=== PATIENT | female | born 1990 | race Caucasian/White ===

== ENCOUNTER 2018-10-09 15:24 | Outpatient (REF) | payer MEDICAID, SELFPAY ==
--- NOTE | 2018-10-09 14:30 | PAPFT_PTH ---
PATIENT: Janette Arvizu LOC: [facility] U#:[id number] AGE/SX: 27/F ROOM: RE10/09/[address]: Silvina Roger NP : 1990 BED: DIS: 10/09/2018 SPEC #: [id number] RECD: 10/09/18 17:52 STATUS: AGUS REAngela #: [id number] DAMIEN: 10/09/18 14:[address]: Silvina Roger NP DEPT: [facility] Cytology RECD BY: Noemy Macario ENTERED: 10/09/18 17:53 SP TYPE: PAPFT OTHR DR: Patrizia Torres Tissues: 1 - CX/ENDOCX FOR PAP SMEARS Procedures: PAP THIN PREP/UVM Screening Comments: [id number] (CHLAMYDIA/GC)
[2018-10-10 14:30] LABS: Chlamydia Result Negative; GC Result Negative; Specimen Description SEE COMMENTS
== END 2018-10-09 15:44 ==
LOC: LBN 15:24
PROVIDERS: PCP Family Medicine; Visit Provider Nurse Practitioner Women's Health
DX: Z11.3 Encounter for screening for infections with a predominantly sexual mode of transmission (principal); Z12.4 Encounter for screening for malignant neoplasm of cervix
CPT/HCPCS: 87491; 87591; 88142

== ENCOUNTER 2019-02-23 14:18 | Outpatient (REF) | payer MEDICAID, SELFPAY ==
[2019-02-23 18:48] LABS: TSH (W/Ref FT4) 1.33 uIU/mL (0.358-3.74)
== END 2019-02-23 14:38 ==
LOC: NCHCN 14:18
PROVIDERS: PCP Family Medicine; Visit Provider Family Medicine
DX: F41.8 Other specified anxiety disorders (principal); F90.0 Attention-deficit hyperactivity disorder, predominantly inattentive type; R07.89 Other chest pain; Z83.3 Family history of diabetes mellitus
CPT/HCPCS: 84443

== ENCOUNTER 2019-03-13 06:15 | Emergency (ER) | payer MEDICAID, SELFPAY ==
[2019-03-13 06:26] VITALS: BP 142/88; PULSE 93; RESP 16; TEMP 36.5; O2SAT 98
--- NOTE | 2019-03-13 06:39 | W.ED.GENAD ---
Discharge Plan Disposition Patient Disposition: HOME Condition: Good Discharge Details Chief Complaint: Sorethroat Clinical Impression: Post-nasal drip, Sore throat Primary Care Provider: Patrizia Torres ED Provider: Jamir Solis Sarver Meds and New Rx's Prescriptions: Continued Nexplanon 68 mg implant 1 implant SBD ONCE Qty: 1 RF: 0 sertraline [Zoloft] 100 MG tablet 100 mg PO DAILY Qty: 30 RF: 4 methylphenidate HCl [Ritalin] 10 MG tablet 10 mg PO DAILY RF: 0 Vyvanse 40 MG capsule 40 mg PO DAILY RF: 0 Discharge Instructions Additional Instructions: Rapid strep is negative. Suspect your sore throat is related to postnasal drip. Try an antihistamine like Zyrtec or Claritin at night. Salt water gargles. Follow-up with primary care next week if not better. Return to ED if high fever, difficulty breathing, inability to swallow. Referrals: Patrizia Torres MD [Primary Care Provider] - Medical Decision Making Patient is afebrile. Lungs are clear and saturations are normal. Oropharynx has had evidence of cobblestoning suggestive of postnasal drip. Rapid strep is negative. Patient asked to try antihistamine to see if it dries up her postnasal drip which should help with the sore throat. Salt water gargles and stay hydrated. Follow-up with primary care next week if not better. Return to ED if difficulty breathing, inability to swallow, high fever, other concerns. HPI General Mode of arrival: ambulatory. Date/Time Provider Initiated Documentation: 03/13/19 06:17. Limitations to Documentation: no limitations. Information obtained by: patient. HPI Narrative: Patient presents to ED with complaint of sore throat. Patient has had cold symptoms for about a week. Most of it seems better but she still has a sore throat. She has a lot of postnasal drip. She has a little bit of a cough. She had no fever. Her sore throat is bothering her the most. It is worse in the morning when she wakes up AND it gets better during the day. She has no difficulty breathing. She thought it was all viral but since the throat is not getting better she decided to come in to be checked. Related Data Home Medications Medication Instructions Recorded Confirmed sertraline [Zoloft] 100 mg PO DAILY #30 tab-cap 12/21/16 03/13/19 Vyvanse 40 mg PO DAILY tab-cap 04/15/17 03/13/19 methylphenidate HCl [Ritalin] 10 mg PO DAILY tab 04/15/17 03/13/19 etonogestrel 68 mg subdermal 1 implant SBD ONCE #1 each 10/09/18 03/13/19 implant Previous Rx's Medication Instructions Recorded etonogestrel 68 mg subdermal 1 implant SBD ONCE #1 each 10/09/18 implant Allergies Allergy/AdvReac Type Severity Reaction Status Date / Time No Known Drug Allergies Allergy Unverified 03/13/19 06:31 Environmental Allergy Intermediate Runny Uncoded 03/13/19 06:31 nose, watery eyes, sneezing General Stated Complaint: Sorethroat GREG: 4 Review of Systems Review of Systems As documented in HPI otherwise negative as below. Const: no fever, chills, weakness Resp: slight cough; no SOB, pleuritic pain CV: no CP, diaphoresis, edema, syncope GI: no abdominal pain, nausea, vomiting, diarrhea Neuro: no headache, numbness, focal weakness, confusion [facility] Medical History Current smoker (Acute) Abnormal Pap smear of cervix (Acute) Anxiety with depression (Acute) Obesity (Chronic) Gestational hypertension (Resolved) ADD (attention deficit disorder) Depression Social History Smoking/Tobacco Use Status: Current every day Alcohol Intake: current Alcohol Intake frequency: holidays/special occasions only Drug use: Socially Substance use type: marijuana Number of Children: 2 What is your relationship status?: living with partner Panel score (0-1 are the most socially isolated patients): 1 Seatbelt use: always Do you feel safe in your relationship?: Yes Female Reproductive History Menstrual control method: implanted History History 3 Para 2 Hx # Term Pregnancies Multiple births Hx # Pregnancies Ectopic pregnancies AB induced Hx Number of Living Children AB spontaneous Exam Narrative Exam Narrative: Vitals: Mildly hypertensive. Afebrile. Normal saturations. Const: Obese female in NAD. HEENT: NC/AT. Normal facial exam. TMs normal. OP with cobblestoning posteriorly. No swelling or exudate. Eyes: Normal conjunctiva and sclera. Neck: Supple. Trachea midline. No adenopathy. Lungs: Normal respiratory effort. Lungs are clear. Cor: RRR without murmur/gallop. Neuro: A+O x 3. CN grossly in tact. Good strength and no focal deficit. Course Vital Signs Temperature 97.7 F 03/13/19 06:26 Pulse 93 H 03/13/19 06:26 Respiratory Rate 16 03/13/19 06:26 Blood Pressure 142/88 H 03/13/19 06:26 Pulse Oximetry 98 03/13/19 06:26 Temperature 97.7 F 03/13/19 06:26 Temperature Source Temporal Artery Scan 03/13/19 06:26 Pulse 93 H 03/13/19 06:26 Respiratory Rate 16 03/13/19 06:26 Respiratory Effort 03/13/19 06:26 Blood Pressure 142/88 H 03/13/19 06:26 Pulse Oximetry 98 03/13/19 06:26 Oxygen Delivery Method Room Air 03/13/19 06:26 Oxygen Flow Rate 0 03/13/19 06:26 Pain Level 10 03/13/19 06:26 Lab/Test Results Lab/Test Results: 03/13/19 06:36 Pharynx Streptococcus Screen (LILIANA) - Pending POC Strep Test-ANI(Rapid) Start: 03/13/19 06:33 Freq: .Rapid Strep Test Status: Active Protocol: Document 03/13/19 06:34 MJM (Rec: 03/13/19 06:34 MJM [id number]) Strep test-ANI(Rapid)-POC POC-Strep test-ANI (Rapid) Negative POC-Strep test-ANI (Rapid) Negative
--- NOTE | 2019-03-13 06:45 | ED.GENADUL_ITS ---
Discharge Plan Disposition Patient Disposition: HOME Condition: Good Discharge Details Chief Complaint: Sorethroat Clinical Impression: Post-nasal drip, Sore throat Primary Care Provider: Patrizia Torres ED Provider: Jamir Solis Statham Meds and New Rx's Prescriptions: Continued Nexplanon 68 mg implant 1 implant SBD ONCE Qty: 1 RF: 0 sertraline [Zoloft] 100 MG tablet 100 mg PO DAILY Qty: 30 RF: 4 methylphenidate HCl [Ritalin] 10 MG tablet 10 mg PO DAILY RF: 0 Vyvanse 40 MG capsule 40 mg PO DAILY RF: 0 Discharge Instructions Additional Instructions: Rapid strep is negative. Suspect your sore throat is related to postnasal drip. Try an antihistamine like Zyrtec or Claritin at night. Salt water gargles. Follow-up with primary care next week if not better. Return to ED if high fever, difficulty breathing, inability to swallow. Referrals: Patrizia Torres MD [Primary Care Provider] - Medical Decision Making Patient is afebrile. Lungs are clear and saturations are normal. Oropharynx has had evidence of cobblestoning suggestive of postnasal drip. Rapid strep is negative. Patient asked to try antihistamine to see if it dries up her postnasal drip which should help with the sore throat. Salt water gargles and stay hydrated. Follow-up with primary care next week if not better. Return to ED if difficulty breathing, inability to swallow, high fever, other concerns. HPI General Mode of arrival: ambulatory . Date/Time Provider Initiated Documentation: 03/13/19 06:17 . Limitations to Documentation: no limitations . Information obtained by: patient . HPI Narrative: Patient presents to ED with complaint of sore throat. Patient has had cold symptoms for about a week. Most of it seems better but she still has a sore throat. She has a lot of postnasal drip. She has a little bit of a cough. She had no fever. Her sore throat is bothering her the most. It is worse in the morning when she wakes up AND it gets better during the day. She has no difficulty breathing. She thought it was all viral but since the throat is not getting better she decided to come in to be checked. Related Data Home Medications Medication Instructions Recorded Confirmed sertraline [Zoloft] 100 mg PO DAILY #30 tab-cap 12/21/16 03/13/19 Vyvanse 40 mg PO DAILY tab-cap 04/15/17 03/13/19 methylphenidate HCl [Ritalin] 10 mg PO DAILY tab 04/15/17 03/13/19 etonogestrel 68 mg subdermal 1 implant SBD ONCE #1 each 10/09/18 03/13/19 implant Previous Rx's Medication Instructions Recorded etonogestrel 68 mg subdermal 1 implant SBD ONCE #1 each 10/09/18 implant Allergies Allergy/AdvReac Type Severity Reaction Status Date / Time No Known Drug Allergies Allergy Unverified 03/13/19 06:31 Environmental Allergy Intermediate Runny Uncoded 03/13/19 06:31 nose, watery eyes, sneezing General Stated Complaint: Sorethroat GREG: 4 Review of Systems Review of Systems As documented in HPI otherwise negative as below. Const: no fever, chills, weakness Resp: slight cough; no SOB, pleuritic pain CV: no CP, diaphoresis, edema, syncope GI: no abdominal pain, nausea, vomiting, diarrhea Neuro: no headache, numbness, focal weakness, confusion [facility] Medical History Current smoker (Acute) Abnormal Pap smear of cervix (Acute) Anxiety with depression (Acute) Obesity (Chronic) Gestational hypertension (Resolved) ADD (attention deficit disorder) Depression Social History Smoking/Tobacco Use Status: Current every day Alcohol Intake: current Alcohol Intake frequency: holidays/special occasions only Drug use: Socially Substance use type: marijuana Number of Children: 2 What is your relationship status?: living with partner Panel score (0-1 are the most socially isolated patients): 1 Seatbelt use: always Do you feel safe in your relationship?: Yes Female Reproductive History Menstrual control method: implanted History History 3 Para 2 Hx # Term Pregnancies Multiple births Hx # Pregnancies Ectopic pregnancies AB induced Hx Number of Living Children AB spontaneous Exam Narrative Exam Narrative: Vitals: Mildly hypertensive. Afebrile. Normal saturations. Const: Obese female in NAD. HEENT: NC/AT. Normal facial exam. TMs normal. OP with cobblestoning posteriorly. No swelling or exudate. Eyes: Normal conjunctiva and sclera. Neck: Supple. Trachea midline. No adenopathy. Lungs: Normal respiratory effort. Lungs are clear. Cor: RRR without murmur/gallop. Neuro: A+O x 3. CN grossly in tact. Good strength and no focal deficit. Course Vital Signs Temperature 97.7 F 03/13/19 06:26 Pulse 93 H 03/13/19 06:26 Respiratory Rate 16 03/13/19 06:26 Blood Pressure 142/88 H 03/13/19 06:26 Pulse Oximetry 98 03/13/19 06:26 Temperature 97.7 F 03/13/19 06:26 Temperature Source Temporal Artery Scan 03/13/19 06:26 Pulse 93 H 03/13/19 06:26 Respiratory Rate 16 03/13/19 06:26 Respiratory Effort 03/13/19 06:26 Blood Pressure 142/88 H 03/13/19 06:26 Pulse Oximetry 98 03/13/19 06:26 Oxygen Delivery Method Room Air 03/13/19 06:26 Oxygen Flow Rate 0 03/13/19 06:26 Pain Level 10 03/13/19 06:26 Lab/Test Results Lab/Test Results: 03/13/19 06:36 Pharynx Streptococcus Screen (LILIANA) - Pending POC Strep Test-ANI(Rapid) Start: 03/13/19 06:33 Freq: .Rapid Strep Test Status: Active Protocol: Document 03/13/19 06:34 MJM (Rec: 03/13/19 06:34 MJM [id number]) Strep test-ANI(Rapid)-POC POC-Strep test-ANI (Rapid) Negative POC-Strep test-ANI (Rapid) Negative
== END 2019-03-13 06:50 | disposition home or self-care (01) ==
PROVIDERS: Emergency Provider Emergency Medicine; PCP Family Medicine
DX: R09.82 Postnasal drip (principal); J02.9 Acute pharyngitis, unspecified
CPT/HCPCS: 99282; 87081

== ENCOUNTER 2019-03-20 18:42 | Outpatient (REF) | payer MEDICAID, SELFPAY | END 2019-03-20 19:02 | LOC: NCHCN 18:42 | PROVIDERS: PCP Family Medicine; Visit Provider Family Medicine | DX: J02.9 Acute pharyngitis, unspecified (principal) | CPT/HCPCS: 87070; 87081 ==

== ENCOUNTER 2019-09-24 15:09 | Emergency (ER) | payer MEDICAID, SELFPAY ==
[2019-09-24 15:15] VITALS: BP 154/96; PULSE 91; RESP 16; TEMP 36.3; O2SAT 99
--- NOTE | 2019-09-24 15:26 | DI.US_ITS ---
EXAM: US PELVIS TRANSVAGINAL CLINICAL HISTORY: left pelvis pain, ?torsion vs cyst TECHNIQUE: Ultrasound performed using standard protocol. COMPARISON: OB ASSESSMENT - WEIGHT/EDMUND from 10/26/2016 FINDINGS: The uterus measures 8.7 centimeters long by 4.5 centimeters AP x 4.4 centimeters transverse. Endomet rial stripe is within normal limits at 4.1 millimeters. There is a 1 centimeter cervical nabothian c yst. No suspicious uterine mass is seen. The right ovary measures 2.5 x 1.7 x 1.7 centimeters. There is normal arterial and venous blood flow present. There is no evidence of ovarian torsion. Ovarian follicles are present. The left ovary measures 3.5 x 2.2 x 2.4 centimeters. There is normal arterial and venous blood flow present. There is no evidence of ovarian torsion. Ovarian follicles are present. The largest measu res 2 x 1.7 x 2.2 centimeters. No free pelvic fluid or hydronephrosis is seen. IMPRESSION: No evidence of ovarian torsion. Bilateral ovarian follicles. The largest is on the left ovary and measures 2 x 1.7 x 2.2 centimeters .
--- NOTE | 2019-09-24 15:30 | W.ED.GENAD ---
Discharge Plan Disposition Patient Disposition: HOME Condition: Stable Discharge Details Chief Complaint: Abd Prob Clinical Impression: Cyst of left ovary Primary Care Provider: Patrizia Torres ED Provider: Chance Roger Home Meds and New Rx's Prescriptions: Continued Nexplanon 68 mg implant 1 implant SBD ONCE Qty: 1 RF: 0 sertraline [Zoloft] 100 MG tablet 120 mg PO DAILY Qty: 30 RF: 4 methylphenidate HCl [Ritalin] 10 MG tablet 10 mg PO DAILY RF: 0 Vyvanse 40 MG capsule 40 mg PO DAILY RF: 0 Discharge Instructions Instructions: Ovarian Cyst (ED) Additional Instructions: follow up with women's wellness in 1-2 weeks if you have severe worsening pain, fevers or persistent vomit return to the emergencydepartment Medical Decision Making 28 yo female comes in with several days of left lower abdomen/pelvis pain. Denies vaginal discharge, is on her perior that she describes as normal. Denies chance of being , no vaginal discharge. On exam has some mild tenderness without guarding in llq and left pelvis. No upper or right sided abdomen pain. Given location of pain will obtain u/s to eval for torsion vs cyst. If this is negative and still having pain will consider CT to eval for possible diverticulitis labs unremarkable other than mild leukocytosis and pain significantly improved. U/s shows left ovarian cyst otherwise normal flow. Given improved pain and findings of cyst do not feel CT indicated. Will have her f/u with women's wellness and return precautions given Differential Diagnosis Differential Diagnosis: cyst, torsion, diverticulitis Imaging Data Radiologic Study: Attestation: I personally reviewed and interpreted this imaging study as follows: Imaging: Ultrasound Radiologist's impression: COMPARISON: US OB ASSESSMENT - WEIGHT/EDMUND 10/26/2016 4:09 PM FINDINGS: Uterus/cervix: Uterus measures 8.7 x 4.5 x 4.4 cm. No fibroids. 1 cm nabothian cyst. Endometrium measures 4.1 mm. Right adnexa: Right ovary measures 2.5 x 1.7 x 1.7 cm. Normal flow. Left adnexa: Left ovary measures 3.5 x 2.2 x 2.0 cm. Normal flow. Left ovarian cyst measures 2 x 1.7 x 2.2 cm. Free fluid: None. Bladder: Normal. Kidney measures up to 11 cm in length. Left kidney measures up to 10 cm in length. IMPRESSION: Left ovarian cyst. Consider 6 week followup. Nabothian cyst Lab Data Lab results reviewed: Yes I reviewed the patient's lab results. HPI General Mode of arrival: ambulatory. Date/Time Provider Initiated Documentation: 09/24/19 15:10. Limitations to Documentation: no limitations. Information obtained by: patient. History of Present Illness 28 year old F presents to the emergency department with the chief complaint of left pelvis pain, and it has been constant. No relieving factors improve symptom(s), No exacerbating factors reported . Patient did receive the following treatments prior to arrival, none Related Data Home Medications Medication Instructions Recorded Confirmed sertraline [Zoloft] 120 mg PO DAILY #30 tab-cap 12/21/16 09/24/19 Vyvanse 40 mg PO DAILY tab-cap 04/15/17 09/24/19 methylphenidate HCl [Ritalin] 10 mg PO DAILY tab 04/15/17 09/24/19 etonogestrel 68 mg subdermal 1 implant SBD ONCE #1 each 10/09/18 09/24/19 implant Previous Rx's Medication Instructions Recorded etonogestrel 68 mg subdermal 1 implant SBD ONCE #1 each 10/09/18 implant Allergies Allergy/AdvReac Type Severity Reaction Status Date / Time No Known Drug Allergies Allergy Unverified 09/24/19 15:25 Environmental Allergy Intermediate Runny Uncoded 09/24/19 15:25 nose, watery eyes, sneezing General Stated Complaint: Abd Prob GREG: 3 Review of Systems All systems reviewed & are unremarkable except as noted in HPI and below Constitutional Constitutional: Denies chills, Denies fever(s) and Denies weakness Cardiovascular Cardiovascular: Denies dyspnea Respiratory Respiratory: Denies cough and Denies dyspnea Gastrointestinal Gastrointestinal: Denies abdominal pain, Denies nausea and Denies vomiting Musculoskeletal Musculoskeletal: Denies joint swelling Neurologic Neurologic: Denies weakness [facility] Social History Smoking/Tobacco Use Status: Current every day Tobacco Type: cigarettes Alcohol Intake: current Alcohol Intake frequency: holidays/special occasions only Drug use: Socially Substance use type: marijuana Number of Children: 2 What is your relationship status?: living with partner Panel score (0-1 are the most socially isolated patients): 1 Seatbelt use: always Do you feel safe in your relationship?: Yes Female Reproductive History Menstrual control method: implanted History History 3 Para 2 Hx # Term Pregnancies Multiple births Hx # Pregnancies Ectopic pregnancies AB induced Hx Number of Living Children AB spontaneous Exam Const General: no acute distress Orientation: alert HENMT Head: normal to inspection Ears: external ears normal General nose exam: external nose normal Mouth: moist mucous membranes Eyes General: appearance normal, both eyes and all related structures Neck Neck: normal visual inspection Resp Effort & Inspection: normal respiratory effort and able to speak in complete sentences Cardio Rate: regular rate GI Palpation: soft Skin General skin exam: no rashes or lesions noted Neuro General: alert and oriented x3 Extrem General: normal to inspection Psych Mental Status: mental status grossly normal Course Vital Signs Vital signs: Vital Signs Temperature 36.3 C L 09/24/19 15:15 Pulse 91 H 09/24/19 15:15 Respiratory Rate 16 09/24/19 15:15 Blood Pressure 154/96 H 09/24/19 15:15 Pulse Oximetry 99 09/24/19 15:15 Temperature 36.3 C L 09/24/19 15:15 Temperature Source Skin 09/24/19 15:15 Pulse 91 H 09/24/19 15:15 Respiratory Rate 16 09/24/19 15:15 Respiratory Effort Non-Labored 09/24/19 15:15 Blood Pressure 154/96 H 09/24/19 15:15 Blood Pressure Position Sitting 09/24/19 15:15 Pulse Oximetry 99 09/24/19 15:15 Oxygen Delivery Method Room Air 09/24/19 15:15 Oxygen Flow Rate 0 09/24/19 15:15 Pain Level 9 09/24/19 15:15
[2019-09-24 15:45] LABS: Bilirubin Negative (Negative); Blood Negative (Negative); Clarity Clear (Clear); Glucose Negative (Negative); Ketones Negative (Negative); Leukocyte Esterase Negative (Negative); Nitrite Negative (Negative); Specific Gravity >= 1.030 (1.005-1.025); Urobilinogen 0.2 EU/dL (Up TO 0.2); pH 5.5 (5-8)
[2019-09-24] MEDS: Ketorolac 15 MG/ML VIAL IVP (15:56)
[2019-09-24 16:16] LABS: Abs Immature Grans 0.04 k/cumm (0.0-0.09); Absolute Basophil Count 0.03 k/cumm (0.0-0.2); Absolute Eosinophil Count 0.27 k/cumm (0.0-0.7); Absolute Lymphocyte Count 2.61 k/cumm (1.2-3.4); Absolute Monocyte Count 1.14 k/cumm (0.11-0.7); Absolute Neutrophil Count 10.11 k/cumm (1.2-6.7); Basophils % 0.2; Eosinophils % 1.9; HCT 41.5 % (36.0-46.0); HGB 14.1 g/dL (12.0-15.5); Immature Grans % 0.3; Lymphocytes % 18.4; Mean Corpuscular Hemoglobin 31.1 pg (27.0-33.0); Mean Corpuscular Volume 91.4 fL (80-95); Neutrophils % 71.2; Platelet Count 249 x1000/uL (130-400); RBC 4.54 m/cumm (4.00-5.20); RBC Distribution Width 12.7 % (11.7-14.6)
[2019-09-24 16:28] LABS: ALT 27 U/L (14-59); AST 15 U/L (15-37); Albumin 3.5 g/dL (3.4-5.0); Alkaline Phosphatase 72 U/L (46-116); BUN 16 mg/dL (7-18); Bilirubin, Total 0.3 mg/dL (0.2-1.0); Calcium 8.7 mg/dL (8.5-10.1); Chloride 106 mmol/L (98-107); Glucose 100 mg/dL (74-106); Lipase 140 U/L (73-393); Potassium 3.9 mmol/L (3.5-5.1); Sodium 140 mmol/L (136-145); Total Protein 6.9 g/dL (6.4-8.2)
--- NOTE | 2019-09-24 17:03 | DI.VRAD_ITS ---
PROCEDURE INFORMATION: Exam: US Pelvis Complete, Transabdominal and US Pelvis, Transvaginal Exam date and time: 09/24/2019 3:28 PM Age: 28 years old Clinical history: Pelvic pain TECHNIQUE: Imaging protocol: Real-time transabdominal and transvaginal pelvic ultrasound (complete) with image documentation. Transvaginal imaging was used for better evaluation of the endometrium and adnexa. COMPARISON: US OB ASSESSMENT - WEIGHT/EDMUND 10/26/2016 4:09 PM FINDINGS: Uterus/cervix: Uterus measures 8.7 x 4.5 x 4.4 cm. No fibroids. 1 cm nabothian cyst. Endometrium measures 4.1 mm. Right adnexa: Right ovary measures 2.5 x 1.7 x 1.7 cm. Normal flow. Left adnexa: Left ovary measures 3.5 x 2.2 x 2.0 cm. Normal flow. Left ovarian cyst measures 2 x 1.7 x 2.2 cm. Free fluid: None. Bladder: Normal. Kidney measures up to 11 cm in length. Left kidney measures up to 10 cm in length. IMPRESSION: Left ovarian cyst. Consider 6 week followup. Nabothian cyst Dictated and Authenticated by: Nataly Duran MD. Ordering:PATTIE Fletcher MD
[2019-09-24 17:17] VITALS: BP 130/83; PULSE 87; RESP 12; TEMP 36.4; O2SAT 97
[2019-09-25 15:27] LABS: Chlamydia Result Negative (Negative)
[2019-09-25 15:32] LABS: GC Result Negative (Negative)
== END 2019-09-24 17:36 | disposition home or self-care (01) ==
PROVIDERS: Emergency Provider Emergency Medicine; PCP Family Medicine
DX: N83.292 Other ovarian cyst, left side (principal)
CPT/HCPCS: 36415; 80053; 81025; 83690; 87491; 87591; 96374; 99284; 76830; 76856; 81003; 85025; J1885

== ENCOUNTER 2019-11-27 10:52 | Outpatient (REF) | payer MEDICAID, SELFPAY ==
[2019-11-27 12:51] LABS: Uric Acid 5.4 mg/dL (2.6-6.0)
== END 2019-11-27 11:12 ==
LOC: NCHCN 10:52
PROVIDERS: PCP Family Medicine; Visit Provider Family Medicine
DX: M79.676 Pain in unspecified toe(s) (principal)
CPT/HCPCS: 84550

== ENCOUNTER 2019-11-27 10:59 | Outpatient (CLI) | payer MEDICAID, SELFPAY ==
--- NOTE | 2019-11-27 10:44 | DI.RAD_ITS ---
EXAM: XR TOE LT GREAT CLINICAL HISTORY: GREAT TOE PAIN [id number], NO KNOWN INJURY, PAIN 4 WEEKS TECHNIQUE: COMPARISON: No exams were available for comparison FINDINGS: Three views were obtained. No bony or soft tissue abnormality seen. IMPRESSION:
== END 2019-11-27 11:19 ==
PROVIDERS: PCP Family Medicine; Visit Provider Family Medicine
DX: M79.675 Pain in left toe(s) (principal)
CPT/HCPCS: 73660

== ENCOUNTER 2020-04-12 14:55 | Outpatient (REF) | payer MEDICAID, SELFPAY ==
[2020-04-13 16:50] LABS: Chlamydia Result Negative (Negative); GC Result Negative (Negative)
== END 2020-04-12 15:15 ==
LOC: LBN 14:55
PROVIDERS: PCP Family Medicine; Visit Provider Nurse Practitioner Women's Health
DX: Z11.3 Encounter for screening for infections with a predominantly sexual mode of transmission (principal)
CPT/HCPCS: 87491; 87591

== ENCOUNTER 2020-09-02 12:11 | Outpatient (REF) | payer MEDICAID, SELFPAY ==
[2020-09-02 20:35] LABS: Hemoglobin A1C 5.4 % (<5.7)
== END 2020-09-02 12:31 ==
LOC: NCHCN 12:11
PROVIDERS: PCP Family Medicine; Visit Provider Family Medicine
DX: Z83.3 Family history of diabetes mellitus (principal); E66.9 Obesity, unspecified
CPT/HCPCS: 83036

== ENCOUNTER 2021-10-08 12:37 | Emergency (ER) | payer MEDICAID, SELFPAY ==
[2021-10-08 12:42] VITALS: BP 137/75; PULSE 83; TEMP 36.6; O2SAT 98
--- NOTE | 2021-10-08 12:53 | ED.GENADUL_ITS ---
Discharge Plan Discharge Details Chief Complaint: DentalOral Primary Care Provider: Patrizia Torres ED Provider: Krystina Shannon Home Meds and New Rx's Prescriptions: No Action Nexplanon 68 mg implant 1 implant SBD ONCE Qty: 1 RF: 0 methylphenidate HCl [Ritalin] 10 MG tablet 10 mg PO DAILY RF: 0 Vyvanse 40 MG capsule 40 mg PO DAILY RF: 0 Acetaminophen Plus Extra Str 500-250 mg Tablet 2 tab PO DIRECTED PRNRF: 0 citalopram 40 mg Tablet 40 mg PO DAILY RF: 0 ibuprofen 800 mg Tablet 400 mg PO Q6H RF: 0 HPI General Date/Time Provider Initiated Documentation: 10/08/21 12:52 . Related Data Home Medications Medication Instructions Recorded Confirmed Vyvanse 40 mg PO DAILY tab-cap 04/15/17 10/08/21 methylphenidate HCl [Ritalin] 10 mg PO DAILY tab 04/15/17 10/08/21 etonogestrel 68 mg subdermal 1 implant SBD ONCE #1 each 10/09/18 10/08/21 implant acetaminophen-calcium carbonat 2 tab PO DIRECTED PRN 10/08/21 10/08/21 [Acetaminophen Plus Extra Str] citalopram 40 mg PO DAILY 10/08/21 10/08/21 ibuprofen 400 mg PO Q6H 10/08/21 10/08/21 Previous Rx's Medication Instructions Recorded etonogestrel 68 mg subdermal 1 implant SBD ONCE #1 each 10/09/18 implant Allergies Allergy/AdvReac Type Severity Reaction Status Date / Time No Known Drug Allergies Allergy Unverified 10/08/21 12:47 Environmental Allergy Intermediate Runny Uncoded 10/08/21 12:47 nose, watery eyes, sneezing [facility] Active Problem List (Updated 04/12/20 @ 11:44 by Silvina Roger NP) Presence of subdermal contraceptive implant (Acute 04/12/20) Current smoker (Acute) Depression (Acute 02/07/15) BMI 39.0-39.9,adult (Acute 06/15/16) Medical History (Updated 04/12/20 @ 11:44 by Silvina Roger NP) Abnormal Pap smear of cervix tx with cryo ADD (attention deficit disorder) Anxiety with depression Depression Obesity Family History Mother Uterine cancer Diabetes Father Pancreatic cancer Social History Smoking/Tobacco Use Status: Current every day Tobacco Type: cigarettes Smoking risk assessment performed?: Yes Alcohol Intake: current Alcohol Intake frequency: holidays/special occasions only Drug use: Socially Substance use type: marijuana Number of Children: 2 What is your relationship status?: living with partner Panel score (0-1 are the most socially isolated patients): 1 Seatbelt use: always Do you feel safe at home: Yes Do you feel safe in your relationship?: Yes History History 3 Para 2 Hx # Term Pregnancies Multiple births Hx # Pregnancies Ectopic pregnancies AB induced Hx Number of Living Children AB spontaneous
--- NOTE | 2021-10-08 13:05 | W.ED.GENAD ---
Discharge Plan Disposition Patient Disposition: HOME Condition: Stable Discharge Details Clinical Impression: Dental infection Primary Care Provider: Patrizia Torres ED Provider: Krystina Shannon Home Meds and New Rx's Prescriptions: New amoxicillin-pot clavulanate [Augmentin] 875-125 mg tablet 1 tab PO BID Qty: 14 RF: 0 oxycodone 5 mg tablet 5 mg PO Q6H PRN (Reason: pain) Qty: 7 RF: 0 Continued Nexplanon 68 mg implant 1 implant SBD ONCE Qty: 1 RF: 0 methylphenidate HCl [Ritalin] 10 MG tablet 10 mg PO DAILY RF: 0 Vyvanse 40 MG capsule 40 mg PO DAILY RF: 0 acetaminophen-calcium carbonat 500-250 mg Tablet 2 tab PO DIRECTED PRNRF: 0 citalopram 40 mg Tablet 40 mg PO DAILY RF: 0 ibuprofen 800 mg Tablet 400 mg PO Q6H RF: 0 Discharge Instructions Instructions: Dental Abscess (ED) Additional Instructions: With the progressive increase in pain since her procedure, I am concerned that you are developing a dental infection. Please take the bite antibiotics as prescribed. Even if symptoms improve, please take the entire course. Please encourage hydration. You may continue with the Tylenol and ibuprofen as needed for discomfort. Please take as directed on the packaging. You may augment this with oxycodone as prescribed. Do not drink alcohol or drive will take this medication. You will need definitive care with a dentist. Please call your dentist on Saturday to be reevaluated. I have attached a list of local dentist as well as oral surgeon in the event that you need to schedule more prompt appointment with someone else. If you develop fever/chills, headaches, increased pain or the new/worsening symptoms to seek care urgently once again. Referrals: Patrizia Torres MD [Primary Care Provider] - Discharge Data Discharge Date/Time-TO BE ENTERED AT DEPARTURE: 10/08/21 13:19 Medical Decision Making Patient is a pleasant 30-year-old female presenting today with chief complaint of left upper dental pain. She reports the pain can radiate towards the left sinus as well as the left ear. She denies any fevers or chills. No headaches. Pain came on after having dental work completed last week. She states that she was supposed to have the left dental extraction, dentist attempted this but was unsuccessful secondary to tooth being, fused to the bone. She has not been on any abx. She does no have f/u that she is aware of. On exam, the tooth that had recent procedure is noted. Erythema is noted as is tenderness, along the buccal side near this tooth. No swelling or fluctuance. I do not see evdience of abscess at this time. However, her increasing pain does have me concerned for dental infection. Will begin on abx. Also advised that she need definitive care. List of local dentist and oral surgeon given. Encouraged hydration. Discussed pain management. All of her questions were addressed, she is in agreement with this plan. HPI General Mode of arrival: ambulatory. Date/Time Provider Initiated Documentation: 10/08/21 12:52. Limitations to Documentation: no limitations. Information obtained by: patient, family and RN notes reviewed. History of Present Illness 30 year old F presents to the emergency department with the chief complaint of dental pain, described as severe, with intensity rated at 10. Quality is described as aching, and is localized to the mouth. Patient reports no radiation. Patient started experiencing this week(s) and it has been constant (slowly worsening). No relieving factors improve symptom(s), No exacerbating factors reported . Patient notes no other symptoms.. Patient did receive the following treatments prior to arrival, none Related Data Home Medications Medication Instructions Recorded Confirmed Vyvanse 40 mg PO DAILY tab-cap 04/15/17 10/08/21 methylphenidate HCl [Ritalin] 10 mg PO DAILY tab 04/15/17 10/08/21 etonogestrel 68 mg subdermal 1 implant SBD ONCE #1 each 10/09/18 10/08/21 implant acetaminophen-calcium carbonat 2 tab PO DIRECTED PRN 10/08/21 10/08/21 amoxicillin-pot clavulanate 1 tab PO BID #14 tab 10/08/21 [Augmentin] citalopram 40 mg PO DAILY 10/08/21 10/08/21 ibuprofen 400 mg PO Q6H 10/08/21 10/08/21 oxycodone 5 mg PO Q6H PRN #7 tab 10/08/21 Previous Rx's Medication Instructions Recorded etonogestrel 68 mg subdermal 1 implant SBD ONCE #1 each 10/09/18 implant amoxicillin-pot clavulanate 1 tab PO BID #14 tab 10/08/21 [Augmentin] oxycodone 5 mg PO Q6H PRN #7 tab 10/08/21 Allergies Allergy/AdvReac Type Severity Reaction Status Date / Time No Known Drug Allergies Allergy Unverified 10/08/21 12:47 Environmental Allergy Intermediate Runny Uncoded 10/08/21 12:47 nose, watery eyes, sneezing General Stated Complaint: DentalOral GREG: 4 Review of Systems Constitutional Constitutional: Reports as per HPI, Denies chills, Denies fever(s) and Denies poor appetite Eyes Eyes: Denies change in vision and Denies irritation ENT Ears, Nose, Mouth, and Throat: Reports as per HPI, Reports dental pain, Denies dysphagia, Denies dry mouth, Denies ear discharge, Denies otalgia, Reports facial pain, Denies hoarseness, Denies nasal congestion, Denies odynophagia and Denies sore throat Respiratory Respiratory: Reports as per HPI and Denies cough Gastrointestinal Gastrointestinal: Reports as per HPI, Denies dysphagia, Denies nausea, Denies odynophagia and Denies vomiting Integumentary/Breasts Skin/Breast: Reports as per HPI, Denies erythema and Denies rash PFSH Medical History (Updated 10/08/21 @ 13:08 by NEGRO Rivera) Abnormal Pap smear of cervix tx with cryo ADD (attention deficit disorder) Anxiety with depression Depression Obesity Family History Mother Uterine cancer Diabetes Father Pancreatic cancer Social History Smoking/Tobacco Use Status: Current every day Tobacco Type: cigarettes Smoking risk assessment performed?: Yes Alcohol Intake: current Alcohol Intake frequency: holidays/special occasions only Drug use: Socially Substance use type: marijuana Number of Children: 2 What is your relationship status?: living with partner Panel score (0-1 are the most socially isolated patients): 1 Seatbelt use: always Do you feel safe at home: Yes Do you feel safe in your relationship?: Yes Female Reproductive History Menstrual control method: implanted History History 3 Para 2 Hx # Term Pregnancies Multiple births Hx # Pregnancies Ectopic pregnancies AB induced Hx Number of Living Children AB spontaneous Exam Const General: cooperative, healthy appearing, comfortable, no acute distress, well developed and well groomed Nutritional Appearance: well nourished and overweight Orientation: alert and awake [facility] Head: normal to inspection, normocephalic and atraumatic Ears: hearing grossly normal bilaterally, external ears normal and TM's normal bilaterally General nose exam: external nose normal and nares normal Face and sinus: normal facial exam, sinuses nontender and face symmetric Mouth: oral mucosae normal, lip normal, tongue normal, moist mucous membranes, no audible dysphonia, no muffled voice, no trismus and No restricted motion Teeth and gingiva: fair dentition Teeth image: 1. area of broken tooth, appears to have been shaved along buccal side. Darkened at the base. Pain with palpation along buccal side. Erythematous. No swelling or fluctuance to suggest abscess. Throat: posterior oropharynx normal, tonsils normal and uvula midline Eyes General: appearance normal, both eyes and all related structures Neck Neck: normal visual inspection, full ROM, no lymphadenopathy, supple and no anterior neck swelling Resp Effort & Inspection: normal respiratory effort, able to speak in complete sentences and no respiratory distress Auscultation: clear to auscultation bilaterally, no rales, no rhonchi and no wheezes Cardio Rate: regular rate Rhythm: regular rhythm Heart Sounds: S1 normal and S2 normal Skin General skin exam: no rashes or lesions noted Trauma: no lacerations or abrasions Neuro General: patient alert and patient awake Cognition: normal cognition Speech: speech normal Gait: normal gait Psych Appearance: grossly normal and well kempt Mental Status: mental status grossly normal Speech and Movement: speech and movement normal Course Vital Signs Vital signs: Vital Signs Temperature 36.6 C 10/08/21 12:42 Pulse 83 10/08/21 12:42 Blood Pressure 137/75 10/08/21 12:42 Pulse Oximetry 98 10/08/21 12:42 Temperature 36.6 C 10/08/21 12:42 Temperature Source Temporal Artery Scan 10/08/21 12:42 Pulse 83 10/08/21 12:42 Respiratory Effort Non-Labored 10/08/21 12:46 Blood Pressure 137/75 10/08/21 12:42 Blood Pressure Position Sitting 10/08/21 12:42 Pulse Oximetry 98 10/08/21 12:42 Oxygen Delivery Method Room Air 10/08/21 12:42 Oxygen Flow Rate 0 10/08/21 12:42 Pain Level 10 10/08/21 12:51
[2021-10-08] MEDS: oxyCODONE 5 MG TAB PO (13:09)
== END 2021-10-08 13:19 | disposition home or self-care (01) ==
PROVIDERS: Emergency Provider Physician Assistant; PCP Family Medicine
DX: K04.7 Periapical abscess without sinus (principal)
CPT/HCPCS: 99283

== ENCOUNTER 2022-02-01 14:48 | Outpatient (REF) | payer MEDICAID, SELFPAY ==
[2022-02-02 15:45] LABS: COVID-19 RT-PCR UVMMC Result Negative (Negative)
== END 2022-02-01 14:49 | disposition home or self-care (01) ==
LOC: NCHCN 14:48
PROVIDERS: PCP Family Medicine; Visit Provider Family Medicine
DX: Z20.822 Contact with and (suspected) exposure to COVID-19 (principal); J06.9 Acute upper respiratory infection, unspecified
CPT/HCPCS: U0003

== ENCOUNTER 2022-06-12 11:16 | Outpatient (REF) | payer MEDICAID, SELFPAY | END 2022-06-12 11:17 | disposition home or self-care (01) | LOC: LBN 11:16 | PROVIDERS: PCP Family Medicine; Visit Provider Physician Assistant | DX: J02.9 Acute pharyngitis, unspecified (principal) | CPT/HCPCS: 87070 ==

== ENCOUNTER 2022-08-20 17:15 | Outpatient (REF) | payer MEDICAID, SELFPAY ==
[2022-08-22 10:33] LABS: COVID-19 RT-PCR UVMMC Result Negative (Negative)
== END 2022-08-20 17:16 | disposition home or self-care (01) ==
LOC: NCHCN 17:15
PROVIDERS: PCP Family Medicine; Visit Provider Family Medicine
DX: Z20.822 Contact with and (suspected) exposure to COVID-19 (principal); J06.9 Acute upper respiratory infection, unspecified
CPT/HCPCS: U0003

== ENCOUNTER 2022-10-31 09:45 | Outpatient (REF) | payer MEDICAID, SELFPAY ==
--- NOTE | 2022-10-31 09:00 | PAPFT_PTH ---
PATIENT: Janette Arvizu LOC: [facility] U#:[id number] AGE/SX: 31/F ROOM: RE10/31/[address]: Ev Stout MD : 1990 BED: DIS: 10/31/2022 SPEC #: [id number] RECD: 10/31/22 11:13 STATUS: AGUS REQ #: [id number] DAMIEN: 10/31/22 09:[address]: Ev Stout DEPT: [facility] Cytology RECD BY: Iva Alvarado ENTERED: 10/31/22 11:14 SP TYPE: PAPFT OTHR DR: Patrizia Torres Tissues: 1 - CX/ENDOCX FOR PAP SMEARS Procedures: PAP THIN PREP/UVM Screening HPV DNA PROBE Comments: [id number] (CHLAMYDIA/GC)
[2022-11-01 12:10] LABS: Chlamydia Result Negative (Negative); GC Result Negative (Negative)
== END 2022-10-31 09:46 | disposition home or self-care (01) ==
LOC: LBN 09:45
PROVIDERS: PCP Family Medicine; Visit Provider Obstetrics & Gynecology
DX: Z11.3 Encounter for screening for infections with a predominantly sexual mode of transmission (principal); Z12.4 Encounter for screening for malignant neoplasm of cervix; Z11.51 Encounter for screening for human papillomavirus (HPV)
CPT/HCPCS: 87491; 87591; 88142; 87624

== ENCOUNTER 2023-06-14 21:08 | Outpatient (REF) | payer MEDICAID, SELFPAY | END 2023-06-14 21:09 | disposition home or self-care (01) | LOC: LBN 21:08 | PROVIDERS: PCP Family Medicine; Visit Provider Physician Assistant | DX: L02.31 Cutaneous abscess of buttock (principal) | CPT/HCPCS: 87077; 87070; 87186; 87205 ==

== ENCOUNTER 2023-11-15 11:31 | Outpatient (REF) | payer MEDICAID, SELFPAY ==
[2023-11-15 16:51] LABS: HCT 47.5 % (36.0-46.0); HGB 15.6 g/dL (11.2-15.7); MCH 30.2 pg (27.0-33.0); MCHC 32.8 % (32.0-36.0); MCV 92 fL (80-95); MPV 11.4 fL (8.0-11.0); Platelet Count 196 10^3/uL (130-400); RBC 5.16 10^6/uL (3.93-5.22); RDW 12.3 % (11.7-14.6); RDW-SD 41.8 fL; WBC 9.77 10^3/uL (4.4-10.8)
[2023-11-15 17:16] LABS: TSH 1.08 uIU/mL (0.36-3.74)
[2023-11-15 17:20] LABS: Hemoglobin A1C 5.3 % (<5.7)
[2023-11-18 11:09] LABS: Hepatitis C Ab w Rflx HCV PCR Negative (Negative)
== END 2023-11-15 11:32 | disposition home or self-care (01) ==
LOC: NCHCN 11:31
PROVIDERS: PCP Family Medicine; Visit Provider Family Medicine
DX: R53.83 Other fatigue (principal); E66.8 Other obesity; Z13.1 Encounter for screening for diabetes mellitus; Z11.59 Encounter for screening for other viral diseases
CPT/HCPCS: 85027; 86803; 83036; 84443

== ENCOUNTER 2025-07-22 23:28 | Emergency (ER) | payer MEDICAID, SELFPAY ==
--- NOTE | 2025-07-22 23:30 | RT.EKG_ITS ---
APPROVED REPORT Exam: Resting ECG Reason for Exam: Patient Location: E HR:70 bpm ECG Measurements Heart Rate 70 AXIS MO 134 P 44 QRSd 105 QRS 57 QT 400 T 48 QTc 430 Conclusion Sinus rhythm...normal P axis, V-rate 60- 99 Atrial premature complex...SV complex w/ short R-R interval no ST segment or T wave abnormalities to suggest occlusive [place]
[2025-07-22 23:34] VITALS: BP 171/96; PULSE 83; RESP 18; TEMP 36.5; O2SAT 99
--- NOTE | 2025-07-22 23:49 | W.ED.GENAD ---
Discharge Plan Disposition Patient Disposition: Home Condition: Good Discharge Details Clinical Impression: Chest pain, Bronchitis Primary Care Provider: Patrizia Torres ED Provider: Lili Siu Home Meds and New Rx's Prescriptions: Continued albuterol sulfate [ProAir HFA] 90 mcg/actuation HFA aerosol inhaler 2 puff inhalation Q6H PRN (Reason: shortness of breath or wheezing) Qty: 8.5 0RF Nexplanon 68 mg implant 1 implant SBD ONCE Qty: 1 0RF Rx Instructions: as a single dose omeprazole 10 mg capsule,delayed release(DR/EC) 10 mg PO DAILY benzonatate 200 mg capsule 200 mg PO TID Qty: 30 0RF albuterol sulfate 90 mcg/actuation HFA aerosol inhaler 2 inh inhalation Q6H Qty: 8.5 0RF amoxicillin-pot clavulanate 875-125 mg tablet 1 tab PO BID Qty: 20 0RF Rx Instructions: Take with meals. lisdexamfetamine [Vyvanse] 40 mg capsule 40 mg PO DAILY citalopram 40 mg Tablet 40 mg PO DAILY ibuprofen 800 mg Tablet 400 mg PO Q6H prednisone 10 mg tablet 20 mg PO DAILY Patient Comments: for 5 days Discharge Instructions Instructions: Pleuritic Chest Pain ED Additional Instructions: Tylenol and ibuprofen over the counter at home; follow the directions on the bottle. Use your inhaler as needed. Call your primary care doctor in the morning to schedule an appointment for within 72 hours to followup on your visit here. At that visit discuss your chest pain (they may wish to do further testing to evaluate your heart) and your blood pressure which is high here today. Return to the emergency department for new or worsening symptoms including new/different/worse pain, fever, feeling like you are going to pass out, difficutly breathing, or if you have any other concerns. HPI General Mode of arrival: ambulatory. Date/Time Provider Initiated Documentation: 07/22/25 23:36. Limitations to Documentation: no limitations. Information obtained by: patient. HPI Narrative: 34yo F with hx of asthma presenting with chest pain and shortness of breath. Has had URI symptoms for about three weeks, currently on prednisone for bronchitis. For the past 4 days has noted dull substernal chest pain worse with deep breathing that seems to radiate into her back. Also worse with coughing. As intermittent at first but now is more constant, and has been worsening. Not positional. No lightheadenss, LE edema, numbness/weakness in her arms. No personal or family history of clotting disorders or blood clots, no family history of early cardiac disease or sudden unexpected . Has tried ibuprofen at home for pain but none since the daytime. Otherwise in her usual state of health with no fevers, chills, rash, nausea, vomiting, abdominal pain, or other concerns. Related Data Home Medications ?Medication ?Instructions ?Recorded ?Confirmed etonogestrel 68 mg subdermal 1 implant subdermal ONCE #1 ea 10/09/18 07/22/25 implant (Nexplanon) citalopram 40 mg tablet 40 mg PO DAILY 10/08/21 07/22/25 ibuprofen 800 mg tablet 400 mg PO Q6H 10/08/21 07/22/25 albuterol sulfate 90 mcg/actuation 2 puff inhalation Q6H PRN 12/19/23 07/22/25 aerosol inhaler (ProAir HFA) shortness of breath or wheezing #8.5 grams lisdexamfetamine 40 mg capsule 40 mg PO DAILY 03/25/24 07/22/25 (Vyvanse) albuterol sulfate 90 mcg/actuation 2 inh inhalation Q6H #8.5 grams 07/13/25 07/22/25 aerosol inhaler amoxicillin 875 mg-potassium 1 tab PO BID #20 tabs 07/13/25 07/22/25 clavulanate 125 mg tablet benzonatate 200 mg capsule 200 mg PO TID #30 caps 07/13/25 07/22/25 omeprazole 10 mg capsule,delayed 10 mg PO DAILY 07/13/25 07/22/25 release prednisone 10 mg tablet 20 mg PO DAILY 07/22/25 07/22/25 Previous Rx's ?Medication ?Instructions ?Recorded etonogestrel 68 mg subdermal 1 implant subdermal ONCE #1 ea 10/09/18 implant (Nexplanon) albuterol sulfate 90 mcg/actuation 2 puff inhalation Q6H PRN 12/19/23 aerosol inhaler (ProAir HFA) shortness of breath or wheezing #8.5 grams albuterol sulfate 90 mcg/actuation 2 inh inhalation Q6H #8.5 grams 09/09/25 aerosol inhaler amoxicillin 875 mg-potassium 1 tab PO BID #20 tabs 07/13/25 clavulanate 125 mg tablet benzonatate 200 mg capsule 200 mg PO TID #30 caps 07/13/25 Allergies Allergy/AdvReac Type Severity Reaction Status Date / Time No Known Allergies Allergy Verified 07/22/25 23:37 General Stated Complaint: SOB GREG: 3 Review of Systems Narrative: see HPI Exam Narrative Exam Narrative: General: Alert, well appearing, well nourished, in no acute distress. Head: Normocephalic, atraumatic Neck: Trachea midline, ?Neck supple. ENT: ?MMM.? No oropharygeal lesions or exudate. Cardiac: ?RRR, no murmurs appreciated. Equal radial pulses. Resp: No respiratory distress. Slight wheeze diffusely, otherwise CTAB. No increased WOB. Abd: ?Soft, non-distended, nontender Extremities: ?No deformities.? No peripheral edema. Neurologic: GCS 15. ? Moves all extremities freely against gravity Course Vital Signs Vital signs: Vital Signs Pulse 83 07/22/25 23:34 Respiratory Rate 18 07/22/25 23:34 Blood Pressure 171/96 H 07/22/25 23:34 Pulse Oximetry 99 07/22/25 23:34 Pulse 83 07/22/25 23:34 Respiratory Rate 18 07/22/25 23:34 Blood Pressure 171/96 H 07/22/25 23:34 Pulse Oximetry 99 07/22/25 23:34 Oxygen Delivery Method Room Air 07/22/25 23:34 Oxygen Flow Rate 0 07/22/25 23:34 Pain Level 6 07/22/25 23:34 Medical Decision Making 34yo F with hx of asthma presenting with chest pain and shortness of breath. Has had URI symptoms for about three weeks, currently on prednisone for bronchitis; for the past 4 days has noted dull substernal chest pain worse with deep breathing that seems to radiate into her back. Hypertensive on arrival, vital signs otherwise reassuring. Slight wheeze on exam, no respiratory distress. Equal radial pulses and UE BP without SBP differential > 20 and pain is dull and pleuritic; unlikely aortic dissection, low suspicion for pulmonary embolism but does have pleuritic pain and does not PERC out d/t hormone exposure. Will send dimer. Will treat symptoms initially with tylenol and albuterol while awaiting results of workup. EKG on arrival NSR, appropriate intervals, no ST segment or T wave abnormalities to suggest occlusive [place]. Low suspicion for ACS; will screen with 1 hour serial troponins. Description of symptoms not suggestive of pericarditis. -Labs reviewed as below, CBC with mild leukocytosis to 13 (nonspecific), CMP with no actionable abnormalities, Mg normal, lipase not suggestive of pancreatitis, BNP not suggestive of heart failure, dimer normal (reassuring against PE and dissection), troponin 6 with one hour repeat 6. Low risk heart score; would not further pursue ACS/trend troponins. Respiratory viral swab negative for covid and flu. -CXR independently reviewed; no focal pneumonia or pneumothorax on my view, radiology read with no acute findings. On reassessment she reports tyelnol helped however does still have some pain. Repeat VS reassuring. Will add toradol. Advised continued symptomatic treatment at home, close PCP followup. Discharged home; discharge instructions and return precautions were reviewed with patient who verbalized understanding. All questions were answered and she is in full agreeement with the plan. Lab Data Lab results reviewed: Yes I reviewed the patient's lab results. Labs: Laboratory Tests Range/Units 07/22/25 07/23/25 07/23/25 23:50 00:18 01:18 WBC (4.4-10.8) 10^3/uL 13.23 H RBC (3.93-5.22) 10^6/uL 4.90 Hgb (11.2-15.7) g/dL 14.9 Hct (36.0-46.0) % 44.3 MCV (80-95) fL 90 MCH (27.0-33.0) pg 30.4 MCHC (32.0-36.0) % 33.6 RDW (11.7-14.6) % 12.4 Plt Count (130-400) 10^3/uL 287 MPV (8.0-11.0) fL 9.5 Immature Gran % % 0.7 Neutrophils % % 64.5 Lymphocytes % % 24.3 Monocytes % % 6.1 Eosinophils % % 3.9 Basophils % % 0.5 Nucleated RBC % (0.0-0.3) % 0.0 Absolute Neutrophils (1.2-6.7) 10^3/uL 8.53 H Absolute Lymphocytes (1.2-3.4) 10^3/uL 3.21 Absolute Monocytes (0.1-0.8) 10^3/uL 0.81 H Absolute Eosinophils (0.0-0.7) 10^3/uL 0.52 Absolute Basophils (0.0-0.2) 10^3/uL 0.07 D-Dimer (<500) ng/mlFEU 216 Sodium (136-145) mmol/L 140 Potassium (3.5-5.1) mmol/L 3.8 Chloride (98-107) mmol/L 105 Carbon Dioxide (21.0-32.0) mmol/L 26.7 Anion Gap (3-11) mmol/L 8.3 BUN (7-18) mg/dL 14 Creatinine (0.55-1.02) mg/dL 0.9 Est GFR (CKD-EPI 2020) (mL/min/1.73m2) 86.03 Glucose (74-106) mg/dL 134 H Calcium (8.5-10.1) mg/dL 8.8 Magnesium (1.8-2.4) mg/dL 1.8 Total Bilirubin (0.2-1.0) mg/dL 0.5 AST (15-37) U/L 6 L ALT (14-59) U/L 28 Alkaline Phosphatase (46-116) U/L 80 Troponin I (<or=51) ng/L 6 6 NT-Pro-B Natriuret Pep (<300) pg/mL 21 Total Protein (6.4-8.2) g/dL 6.5 Albumin (3.4-5.0) g/dL 3.3 L Lipase (<78) U/L 62 Serum HCG, Qual Negative COVID-19 Source Nasopharynx SARS-CoV-2 (PCR) (Negative) Negative Influenza Type A (PCR) (Negative) Negative Influenza Type B (PCR) (Negative) Negative RSV (PCR) (Negative) Negative PFSH All Active Problems (Updated 07/23/25 @ 02:06 by Lili Siu MD) Bronchitis (Acute) Chest pain (Acute) Bleeding external hemorrhoids (Acute) Very minor Hx MRSA infection (Acute) Fatigue (Acute) Cough (Acute) Asthma, intermittent with acute exacerbation (Acute) Medical History Lactose intolerance Migraine SHIRA (stress urinary incontinence, female) History of cervical dysplasia Tx with cryo?? 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 2013, 2015, 2018: Negative Dental infection Presence of subdermal contraceptive implant (04/12/20) Nexplanon placed at [facility] Obesity Current smoker Anxiety with depression ADD (attention deficit disorder) Family History Mother Uterine cancer Diabetes Father Pancreatic cancer Social History Smoking/Tobacco Use Status: Current every day Tobacco Type: cigarettes Tobacco: How many years used: 10 Quit status: not considering quitting Smoking risk assessment performed?: Yes Alcohol Intake: current Alcohol Intake frequency: holidays/special occasions only Drug use: Socially Substance use type: marijuana Number of Children: 2 What is your relationship status?: living with partner Panel score (0-1 are the most socially isolated patients): 1 Seatbelt use: always Do you feel safe at home: Yes Do you feel safe in your relationship?: Yes Female Reproductive History Menstrual Duration of menses: 3-5 days control method: implanted History History 3 Para 2 Hx # Term Pregnancies Multiple births Hx # Pregnancies Ectopic pregnancies AB induced Hx Number of Living Children AB spontaneous Past Pregnancies Del. Date GA/Weeks # Preg Succ Route Wgt Sex Labor Lgth Anesthesia Location Prov Complic 08/03/15 38 Yes vaginal 3401.943 g Male [facility] 11/10/16 38 Yes vaginal 3430.292 g Female [facility]
[2025-07-22 23:51] VITALS: RESP 18; O2SAT 97
[2025-07-23] MEDS: Albuterol 2.5 MG/3 ML INH SOLN VIAL UPD (00:04)
[2025-07-23] MEDS: ACETAMINOPHEN 1,000 MG/100 ML BAG 400 MG IVPB (00:04)
[2025-07-23 00:22] VITALS: BP 129/80
[2025-07-23 00:23] VITALS: BP 145/76
[2025-07-23 00:28] LABS: Abs Immature Grans 0.09 10^3/uL (0.0-0.06); HCT 44.3 % (36.0-46.0); HGB 14.9 g/dL (11.2-15.7); Immature Grans % 0.7 %; MCH 30.4 pg (27.0-33.0); MCHC 33.6 % (32.0-36.0); MCV 90 fL (80-95); MPV 9.5 fL (8.0-11.0); Platelet Count 287 10^3/uL (130-400); RBC 4.90 10^6/uL (3.93-5.22); RDW 12.4 % (11.7-14.6); RDW-SD 40.7 fL; WBC 13.23 10^3/uL (4.4-10.8)
[2025-07-23 00:45] LABS: HCG Qual (Serum) Negative
[2025-07-23 00:54] LABS: ALT 28 U/L (14-59); AST 6 U/L (15-37); Albumin 3.3 g/dL (3.4-5.0); Alkaline Phosphatase 80 U/L (46-116); Anion Gap 8.3 mmol/L (3-11); BUN 14 mg/dL (7-18); Bilirubin, Total 0.5 mg/dL (0.2-1.0); CO2 26.7 mmol/L (21.0-32.0); Calcium 8.8 mg/dL (8.5-10.1); Chloride 105 mmol/L (98-107); Estimated GFR 86.03 (mL/min/1.73m2); Glucose 134 mg/dL (74-106); Magnesium 1.8 mg/dL (1.8-2.4); NT-proBNP 21 pg/mL (<300); Potassium 3.8 mmol/L (3.5-5.1); Sodium 140 mmol/L (136-145); Total Protein 6.5 g/dL (6.4-8.2); Troponin I 6 ng/L (<or=51)
[2025-07-23 00:55] LABS: D-Dimer 216 ng/mlFEU (<500)
[2025-07-23 00:57] LABS: Lipase 62 U/L (<78)
[2025-07-23 01:00] LABS: COVID-19 PCR Negative (Negative); RSV PCR Negative (Negative)
[2025-07-23 01:47] LABS: Troponin I 6 ng/L (<or=51)
--- NOTE | 2025-07-23 01:49 | DI.[facility]_ITS ---
PROCEDURE INFORMATION: Exam: XR Chest Exam date and time: 07/23/2025 1:01 AM Age: 34 years old Clinical indication: Shortness of breath; SOB TECHNIQUE: Imaging protocol: Radiologic exam of the chest. Views: 2 views. COMPARISON: No relevant prior studies available. FINDINGS: Lungs: Unremarkable. No consolidation. Pleural spaces: Unremarkable. No pleural effusion. No pneumothorax. Heart/Mediastinum: Unremarkable. No cardiomegaly. Bones/joints: Unremarkable. IMPRESSION: No acute findings. Dictated and Authenticated by: Julio Tejada MD. Orderin Salbador Pearson MD
[2025-07-23] MEDS: Ketorolac 15 MG/ML VIAL IVP (02:27)
[2025-07-23 02:29] VITALS: BP 145/60; PULSE 72; RESP 18; O2SAT 97
--- NOTE | 2025-07-23 23:49 | DI.RAD_ITS ---
Exam(s) XR CHEST 2V PA LATERAL EXAM: XR CHEST 2V PA LATERAL CLINICAL HISTORY: SOB TECHNIQUE: 2D digital imaging was performed of the chest. Two images were obtained. PA and lateral views were obtained. COMPARISON: CR CHEST 2 VIEWS PA,LAT from 05/26/2009 CR CHEST 2 VIEWS PA,LAT from 08/02/2016 FINDINGS: MEDIASTINUM: Normal. HEART: Normal. PULMONARY VASCULATURE: Normal. LUNGS: Clear. PLEURAL SPACE: No pleural effusion or pneumothorax. BONE:Within normal limits for the patient's age. OTHER FINDINGS:Normal. IMPRESSION: 1. No acute pulmonary findings. 2. The preliminary [facility] report was reviewed. DATA REPOSITORY: RADIATION DOSE DELIVERED:
== END 2025-07-23 02:34 | disposition home or self-care (01) ==
PROVIDERS: Emergency Provider Student in an Organized Health Care Education/Training Program; PCP Family Medicine
DX: R07.9 Chest pain, unspecified (principal); J40 Bronchitis, not specified as acute or chronic; R03.0 Elevated blood-pressure reading, without diagnosis of hypertension
CPT/HCPCS: 36415; 80053; 81025; 83690; 87637; 93005; 94640; 96365; 96375; 99284; 71046; 83735; 83880; 84484; 84703; 85025; 85379; 93010; J0131; J1885; J7613